=== PATIENT | male | born 1965 | race American Indian/Alaskan Native ===

== ENCOUNTER 2017-08-06 17:19 | Inpatient (IN) | payer MEDICARE ==
[2017-08-06] MEDS ORDERED: NACL 0.9% 500 ML 500 ML IV ONE (17:47)
[2017-08-06] MEDS ORDERED: NACL 0.9% 1000 ML 1,000 ML IV ONE ×2 (17:49→17:50)
[2017-08-06] MEDS ORDERED: KEPPRA 1,000 MG/NS 0.75% 100ML 1,000 MG/100 ML BAG IV ONE (17:55)
[2017-08-06 18:13] LABS: Basophils % (Auto) 0.4 % (0.0-1.8); Hematocrit 42.1 % (35.5-45.6); Hemoglobin 13.5 gm/dl (11.8-15.2); Mean Corpuscular HGB Conc 32 % (32-34); Mean Corpuscular Hemoglobin 30 pg (28-32); Mean Corpuscular Volume 93 fl (84-94); Platelet Count 248 K/mm3 (140-440); Red Blood Count 4.54 M/mm3 (3.65-5.03); Red Cell Distribution Width 15.2 % (13.2-15.2); White Blood Count 8.5 K/mm3 (4.5-11.0)
[2017-08-06] MEDS ORDERED: ATIVAN IV ONE ×2 (18:26→18:45)
[2017-08-06 18:30] LABS: INR 1.18 (0.87-1.13)
[2017-08-06] MEDS ORDERED: ATIVAN ONE (18:31)
[2017-08-06 18:33] LABS: Albumin/Globulin Ratio 1.3 %; Bilirubin,Total 0.4 mg/dL (0.1-1.2); Calcium 8.5 mg/dL (8.4-10.2); Chloride 100.5 mmol/L (98-107); Creatine Kinase MB 6.7 ng/mL (0.0-4.0); Potassium 3.8 mmol/L (3.6-5.0)
[2017-08-06 18:35] LABS: Creatine Kinase 663 units/L (55-170)
[2017-08-06] MEDS ORDERED: VITAMIN B-1 100 MG, FOLVITE 1 MG, INFUVITE 10 ML in NACL 0.9% 1000 ML 1,000 ML IV ONE (18:42)
--- NOTE | 2017-08-06 19:01 | XRay Report ---
FINAL REPORT PROCEDURE: Chest. TECHNIQUE: Portable AP supine view. HISTORY: Hypertension. COMPARISON: No prior studies are available for comparison. FINDINGS: The heart size is normal. There is mild tortuosity and elongation of the thoracic aorta. The lungs are clear and well expanded. The soft tissues are unremarkable. There is an old fracture of the left clavicle. Median sternotomy wires are present. IMPRESSION: No evidence of acute disease.
[2017-08-06] MEDS ORDERED: DULCOLAX PR PRN (19:10)
[2017-08-06] MEDS ORDERED: ZOFRAN IV PRN (19:10)
[2017-08-06] MEDS ORDERED: MILK OF MAGNESIA PO PRN (19:10)
[2017-08-06] MEDS ORDERED: TYLENOL PO PRN (19:10)
--- NOTE | 2017-08-06 19:10 | History and Physical Report ---
History of Present Illness Date of examination: 08/06/17 Date of admission: Chief complaint: Chief complaint: Multiple seizures today. [2] Altered SENSORIUM since morning. History of present illness: History of present illness: 52-year-old -Indian male comes in the ER for multiple seizures since morning. Tonic-clonic seizures as per the mother who is at bedside. Patient apparently not taking his medications because they're not sent in by [facility] where he follows as an outpatient. Patient says is on Keppra but does not know the dosage. Patient has not been taking his medications for the last 7-10 days. No fever no chills. No shortness of breath. No recent travel. No dysuria. Confused and altered sensorium as per mother which is clearing up in the ER. He was lucid to a large extent at the time of my examination. Moving all 4 extremities. Review of System: Constitutional: no fever, no chills, no weight loss Ears, eyes, nose, mouth and throat: no nasal congestion, no nasal discharge, no sinus pressure, no vision change, no red eye. Neck: No neck pain or rigidity. Cardiovascular: No chest pain, no orthopnea, no palpitations, no leg swelling Respiratory: No shortness of breath, no cough, no congestion, no wheezing Gastrointestinal: no abdominal pain, no nausea, no vomiting Genitourinary : no dysuria, no hematuria Musculoskeletal: no joint swelling or muscle ache Integumentary: no rash, no pruritis Neurological: See HPI Endocrine: no cold or heat intolerance , no polyuria or polydipsia Hematologic/Lymphatic: no easy bruising, no easy bleeding, no gland swelling Allergic/Immunologic: no urticaria, no angioedema. Past History Past Medical History: other (seizure disorder) Past Surgical History: No surgical history Social history: lives with family, smoking, alcohol abuse, full code Family history: hypertension Medications and Allergies Allergies Allergy/AdvReac Type Severity Reaction Status Date / Time No Known Allergies Allergy Unverified 08/06/17 17:59 Home Medications Medication Instructions Recorded Confirmed Last Taken Type No Known Home Medications [No 08/06/17 08/06/17 Unknown History Reported Home Medications] Active Meds: Active Medications Thiamine HCl 100 mg/ Folic Acid 1 mg/ Multivitamins/Minerals 10 ml/ Sodium Chloride 1,011.2 mls @ 250 mls/hr IV ONCE.ED ONE Stop: 08/06/17 22:44 Exam - Physical Exam Narrative exam: Lying comfortably in bed. Mother at bedside - Constitutional Vitals: Temp Pulse Resp BP Pulse Ox 97.7 F 86 31 H 130/88 96 08/06/17 17:59 08/06/17 19:00 08/06/17 19:00 08/06/17 19:00 08/06/17 18:51 General appearance: Present: no acute distress, well-nourished - EENT Eyes: Present: PERRL ENT: hearing intact, clear oral mucosa - Neck Neck: Present: supple, normal ROM - Respiratory Respiratory effort: normal Respiratory: bilateral: CTA - Cardiovascular Heart rate: 80 Rhythm: regular (80) Heart Sounds: Present: S1 & S2. Absent: rub, click - Extremities Extremities: no ischemia, pulses intact, pulses symmetrical, No edema Peripheral Pulses: within normal limits - Abdominal General gastrointestinal: Present: soft, non-tender, non-distended, normal bowel sounds Male genitourinary: Present: normal - Rectal Rectal Exam: deferred - Integumentary Integumentary: Present: clear, warm, dry - Musculoskeletal Musculoskeletal: gait normal, strength equal bilaterally - Psychiatric Psychiatric: appropriate mood/affect (was lethargic and decreased responsiveness while in the emergency room but improved to normal in the next 2 hours.), intact judgment & insight - Neurologic Neurologic: CNII-XII intact, moves all extremities, gait normal Results - Labs CBC & Chem 7: 08/06/17 17:58 08/06/17 17:58 Labs: Laboratory Last Values WBC 8.5 K/mm3 (4.5-11.0) 08/06/17 17:58 RBC 4.54 M/mm3 (3.65-5.03) 08/06/17 17:58 Hgb 13.5 gm/dl (11.8-15.2) 08/06/17 17:58 Hct 42.1 % (35.5-45.6) 08/06/17 17:58 MCV 93 fl (84-94) 08/06/17 17:58 MCH 30 pg (28-32) 08/06/17 17:58 MCHC 32 % (32-34) 08/06/17 17:58 RDW 15.2 % (13.2-15.2) 08/06/17 17:58 Plt Count 248 K/mm3 (140-440) 08/06/17 17:58 Lymph % (Auto) 26.5 % (13.4-35.0) 08/06/17 17:58 [place] % (Auto) 9.2 % (0.0-7.3) H 08/06/17 17:58 Eos % (Auto) 1.0 % (0.0-4.3) 08/06/17 17:58 Baso % (Auto) 0.4 % (0.0-1.8) 08/06/17 17:58 Lymph # 2.2 K/mm3 (1.2-5.4) 08/06/17 17:58 [place] # 0.8 K/mm3 (0.0-0.8) 08/06/17 17:58 Eos # 0.1 K/mm3 (0.0-0.4) 08/06/17 17:58 Baso # 0.0 K/mm3 (0.0-0.1) 08/06/17 17:58 Seg Neutrophils % 62.9 % (40.0-70.0) 08/06/17 17:58 Seg Neutrophils # 5.3 K/mm3 (1.8-7.7) 08/06/17 17:58 PT 15.6 Sec. (12.2-14.9) H 08/06/17 17:58 INR 1.18 (0.87-1.13) H 08/06/17 17:58 VBG pH 7.272 (7.320-7.420) L 08/06/17 17:58 Sodium 141 mmol/L (137-145) 08/06/17 17:58 Potassium 3.8 mmol/L (3.6-5.0) 08/06/17 17:58 Chloride 100.5 mmol/L (98-107) 08/06/17 17:58 Carbon Dioxide 15 mmol/L (22-30) L 08/06/17 17:58 Anion Gap 29 mmol/L 08/06/17 17:58 BUN 8 mg/dL (9-20) L 08/06/17 17:58 Creatinine 1.5 mg/dL (0.8-1.5) 08/06/17 17:58 Estimated GFR 49 ml/min 08/06/17 17:58 BUN/Creatinine Ratio 5 % 08/06/17 17:58 Glucose 168 mg/dL (75-100) H 08/06/17 17:58 POC Glucose 142 (70-105) H 08/06/17 17:46 Calcium 8.5 mg/dL (8.4-10.2) 08/06/17 17:58 Magnesium 2.40 mg/dL (1.7-2.3) H 08/06/17 17:58 Total Bilirubin 0.40 mg/dL (0.1-1.2) 08/06/17 17:58 AST 29 units/L (5-40) 08/06/17 17:58 ALT 26 units/L (7-56) 08/06/17 17:58 Alkaline Phosphatase 76 units/L (35-129) 08/06/17 17:58 Ammonia 93.0 umol/L (25-60) H 08/06/17 18:25 Total Creatine Kinase 663 units/L (55-170) H 08/06/17 17:58 CK-MB (CK-2) 6.7 ng/mL (0.0-4.0) H 08/06/17 17:58 CK-MB (CK-2) Rel Index 1.0 (0-4) 08/06/17 17:58 Troponin T < 0.010 ng/mL (0.00-0.029) 08/06/17 17:58 NT-Pro-B Natriuret Pep 274.5 pg/mL (0-900) 08/06/17 17:58 Total Protein 7.0 g/dL (6.3-8.2) 08/06/17 17:58 Albumin 4.0 g/dL (3.9-5) 08/06/17 17:58 Albumin/Globulin Ratio 1.3 % 08/06/17 17:58 Short CBC 08/06/17 Range/Units 17:58 WBC 8.5 (4.5-11.0) K/mm3 Hgb 13.5 (11.8-15.2) gm/dl Hct 42.1 (35.5-45.6) % Plt Count 248 (140-440) K/mm3 BMP 08/06/17 17:58 Sodium 141 Potassium 3.8 Chloride 100.5 Carbon Dioxide 15 L BUN 8 L Creatinine 1.5 Glucose 168 H Calcium 8.5 Cardiac Enzymes 08/06/17 Range/Units 17:58 Total Creatine Kinase 663 H (55-170) units/L CK-MB (CK-2) 6.7 H (0.0-4.0) ng/mL Troponin T < 0.010 (0.00-0.029) ng/mL Liver Function 08/06/17 Range/Units 17:58 Total Bilirubin 0.40 (0.1-1.2) mg/dL AST 29 (5-40) units/L ALT 26 (7-56) units/L Alkaline Phosphatase 76 (35-129) units/L Albumin 4.0 (3.9-5) g/dL - Imaging and Cardiology EKG: report reviewed (Normal sinus rhythm 80 per minute) Chest x-ray: report reviewed (no acute findings) CT Scan - head: report reviewed (not done) Assessment and Plan Advance Directives: Yes (full code) VTE prophylaxis?: Chemical Plan of care discussed with patient/family: Yes - Patient Problems (1) Acute encephalopathy Current Visit: Yes Status: Acute Plan to address problem: Secondary to seizures. Patient noncompliant. Patient counseled about compliance. Patient started on IV Keppra for 3 doses and transitioned to by mouth Keppra thousand milligrams every 12 from tomorrow evening. Orders written appropriately. IV fluids for now. Sepsis unlikely even though lacticacid is high. High lactic acid may be secondary to seizures and causing anaerobic metabolism.. Lactic acid can be very high after severe muscular activity like 100 m race. (2) Sepsis Current Visit: Yes Status: Acute Qualifiers: Sepsis type: sepsis due to unspecified organism Qualified Code(s): A41.9 - Sepsis, unspecified organism Plan to address problem: unlikely. No focus of infection found. High lactic acid secondary to seizure activity. We will start empiric IV Zosyn couple of doses. Team 3 can stop it tomorrow if no signs of infection present Blood cultures and urine cultures ordered. (3) Seizure disorder, generalized convulsive, intractable Current Visit: Yes Status: Acute Plan to address problem: Patient started on IV Keppra to be transitioned to by mouth Keppra tomorrow evening (4) Non-compliance Current Visit: Yes Status: Chronic Plan to address problem: Patient counseled about the dangers of noncompliance. (5) DVT prophylaxis Current Visit: Yes Status: Acute Plan to address problem: patient started on Lovenox 40 milligrams subcutaneous daily
[2017-08-06] MEDS ORDERED: ATIVAN IV PRN ×3 (19:17)
--- NOTE | 2017-08-06 19:18 | Ultrasound Report ---
FINAL REPORT PROCEDURE: Limited abdominal ultrasound. TECHNIQUE: Real-time sonography was performed of the abdominal aorta with image documentation. HISTORY: Low blood pressure, rule out abdominal aortic aneurysm. COMPARISON: No prior studies are available for comparison. FINDINGS: The abdominal aorta has a normal caliber. The diameter measures 2.5 centimeters proximally, 2.2 centimeters in the midportion and 1.9 centimeters distally. The iliac arteries were not seen due to bowel gas. There is no free fluid seen in the abdomen or pelvis. IMPRESSION: Normal sized abdominal aorta.
--- NOTE | 2017-08-06 19:23 | Emergency Department Report ---
ED General Adult HPI - General Chief complaint: Arrhythmia/Palpitations Stated complaint: RAPID HEART RATE Time Seen by Provider: 08/06/17 17:47 Source: EMS Mode of arrival: Stretcher Limitations: No Limitations - History of Present Illness Initial comments: Patient is transported to this facility by EMS with a somewhat disparate history the family. The family states clearly that the patient's brother witnessed him have a a seizure. The patient's or girlfriend states that he has "seizures frequently and usually goes to [place]." He "drinks like a fish ". He also has a history of cocaine abuse. Commercial Sales Specialist report that the patient had a heart rate of 180 when they encountered him for the second time. The first call was associated with refusal of transport. They were called back to the facility I'm not sure if this was a second seizure with the rationale for calling them back was. Her medics believe that the patient was in SVT and show prehospital EKGs with a heart rate of nearly 180 and a largely regular rhythm. It looks like this may actually have been sinus tach. In any case they gave adenosine 6 mg and then 12 mg without effect. They then reported to me that the patient had periods of V. tach. They were unable to demonstrate any V. tach on the code summary. Strips that I see do not show any wide complex tachycardia. The patient presents to the emergency department now with heart rate in the 60s. He denies chest pain. He states he has some lower back pain but I cannot ascertain whether this is acute at all. He is somewhat confused on arrival. His significant other states that he has not been to this hospital before. He is status post a CABG which he states was after the year 1999. He is noncompliant with his seizure medicine. He has a history of alcohol withdrawal. -: unknown Quality: other (lower back pain did not describe further) Associated Symptoms: denies other symptoms - Related Data Home Medications Medication Instructions Recorded Confirmed Last Taken No Known Home Medications [No 08/06/17 08/06/17 Unknown Reported Home Medications] Allergies Allergy/AdvReac Type Severity Reaction Status Date / Time No Known Allergies Allergy Unverified 08/06/17 17:59 ED Review of Systems ROS: Stated complaint: RAPID HEART RATE Other details as noted in HPI Comment: Unobtainable due to pts medical conditions (I believe the patient is postictal) ED Past Medical Hx - Past Medical History Previous Medical History?: Yes Hx Hypertension: Yes Additional medical history: uknown heart condition - Surgical History Past Surgical History?: Yes Additional Surgical History: unknown cardiac - Social History Smoking Status: Former Smoker Substance Use Type: Alcohol, Cocaine - Medications Home Medications: Home Medications Medication Instructions Recorded Confirmed Last Taken Type No Known Home Medications [No 08/06/17 08/06/17 Unknown History Reported Home Medications] ED Physical Exam - General Limitations: Altered Mental Status General appearance: in no apparent distress, lethargic, other (right sweaty on arrival) - Head Head exam: Present: atraumatic, normocephalic - Eye Eye exam: Present: normal appearance, PERRL, EOMI. Absent: scleral icterus - ENT ENT exam: Present: mucous membranes moist - Neck Neck exam: Present: normal inspection. Absent: tenderness, meningismus - Respiratory Respiratory exam: Present: normal lung sounds bilaterally. Absent: respiratory distress - Cardiovascular Cardiovascular Exam: Present: regular rate, normal rhythm. Absent: systolic murmur, diastolic murmur, rubs, gallop - GI/Abdominal GI/Abdominal exam: Present: soft, normal bowel sounds. Absent: distended, tenderness, guarding, rebound, rigid - Rectal Rectal exam: Present: deferred - Extremities Exam Extremities exam: Present: normal inspection - Back Exam Back exam: Present: normal inspection - Neurological Exam Neurological exam: Present: alert, oriented X3, CN II-XII intact. Absent: motor sensory deficit - Psychiatric Psychiatric exam: Present: anxious, flat affect - Skin Skin exam: Present: warm, intact, normal color, diaphoretic. Absent: rash ED Course Vital Signs 08/06/17 08/06/17 08/06/17 17:44 17:45 17:47 Temperature 97.7 F Pulse Rate 78 Respiratory 16 Rate Blood Pressure 71/45 79/49 79/49 Blood Pressure [Left] O2 Sat by Pulse 96 Oximetry 08/06/17 08/06/17 08/06/17 17:59 18:00 18:15 Temperature 97.7 F Pulse Rate 90 Respiratory Rate Blood Pressure 104/74 115/84 Blood Pressure 136/84 [Left] O2 Sat by Pulse 98 94 95 Oximetry 08/06/17 08/06/17 08/06/17 18:30 18:51 18:59 Temperature Pulse Rate 86 Respiratory Rate Blood Pressure 115/84 79/49 Blood Pressure [Left] O2 Sat by Pulse 94 96 Oximetry 08/06/17 19:00 Temperature Pulse Rate 86 Respiratory 31 H Rate Blood Pressure 130/88 Blood Pressure [Left] O2 Sat by Pulse Oximetry - Reevaluation(s) Reevaluation #1: Patient responded to a fluid bolus. He was given a small amount of Ativan. A banana bag was ordered. His EKG was noted to be significantly abnormal with no prior to compare. He did not complain of chest pain. His lower back pain resolved. He is noted to have a lactic acid level of 11. A bedside ultrasound was performed which showed no apparent abnormality per the tech. Dr. Ornelas was informed of the patient's elevated lactic acid level. He stated that he wanted to admit the patient to the [facility] floor. I do believe the patient will need to see what protocol. It is likely that he had recurrent seizures. I don't see any evidence of a focus of infection as blood pressure has improved. His code sepsis will be discontinued. Dr. Ornelas has assumed care of the patient. Further evaluation and management will be per Dr. Ornelas. 08/06/17 19:27 Reevaluation #2: Patient is clinically improved and speaking coherently now. He will be admitted by . 08/06/17 19:32 ED Medical Decision Making - Lab Data Result diagrams: 08/06/17 17:58 08/06/17 17:58 Laboratory Results - last 24 hr 08/06/17 08/06/17 08/06/17 17:46 17:58 17:58 WBC 8.5 RBC 4.54 Hgb 13.5 Hct 42.1 MCV 93 MCH 30 MCHC 32 RDW 15.2 Plt Count 248 Lymph % (Auto) 26.5 [place] % (Auto) 9.2 H Eos % (Auto) 1.0 Baso % (Auto) 0.4 Lymph # 2.2 [place] # 0.8 Eos # 0.1 Baso # 0.0 Seg Neutrophils % 62.9 Seg Neutrophils # 5.3 PT 15.6 H INR 1.18 H VBG pH Sodium Potassium Chloride Carbon Dioxide Anion Gap BUN Creatinine Estimated GFR BUN/Creatinine Ratio Glucose POC Glucose 142 H Lactic Acid Calcium Magnesium Total Bilirubin AST ALT Alkaline Phosphatase Ammonia Total Creatine Kinase CK-MB (CK-2) CK-MB (CK-2) Rel Index Troponin T NT-Pro-B Natriuret Pep Total Protein Albumin Albumin/Globulin Ratio 08/06/17 08/06/17 08/06/17 17:58 17:58 17:58 WBC RBC Hgb Hct MCV MCH MCHC RDW Plt Count Lymph % (Auto) [place] % (Auto) Eos % (Auto) Baso % (Auto) Lymph # [place] # Eos # Baso # Seg Neutrophils % Seg Neutrophils # PT INR VBG pH 7.272 L Sodium 141 Potassium 3.8 Chloride 100.5 Carbon Dioxide 15 L Anion Gap 29 BUN 8 L Creatinine 1.5 Estimated GFR 49 BUN/Creatinine Ratio 5 Glucose 168 H POC Glucose Lactic Acid 11.20 H* Calcium 8.5 Magnesium Total Bilirubin 0.40 AST 29 ALT 26 Alkaline Phosphatase 76 Ammonia Total Creatine Kinase CK-MB (CK-2) CK-MB (CK-2) Rel Index Troponin T NT-Pro-B Natriuret Pep Total Protein 7.0 Albumin 4.0 Albumin/Globulin Ratio 1.3 08/06/17 08/06/17 08/06/17 17:58 17:58 18:25 WBC RBC Hgb Hct MCV MCH MCHC RDW Plt Count Lymph % (Auto) [place] % (Auto) Eos % (Auto) Baso % (Auto) Lymph # [place] # Eos # Baso # Seg Neutrophils % Seg Neutrophils # PT INR VBG pH Sodium Potassium Chloride Carbon Dioxide Anion Gap BUN Creatinine Estimated GFR BUN/Creatinine Ratio Glucose POC Glucose Lactic Acid Calcium Magnesium 2.40 H Total Bilirubin AST ALT Alkaline Phosphatase Ammonia 93.0 H Total Creatine Kinase 663 H CK-MB (CK-2) 6.7 H CK-MB (CK-2) Rel Index 1.0 Troponin T < 0.010 NT-Pro-B Natriuret Pep 274.5 Total Protein Albumin Albumin/Globulin Ratio - EKG Data -: EKG Interpreted by Me EKG shows normal: sinus rhythm Rate: normal - EKG Data Interpretation: LVH, other (there is no deep to and through V4. There is slight J-point elevation versus motion artifact in the inferior leads. There is no STEMI.) - Radiology Data interpreted by me: Chest x-ray showed no acute process Critical Care Time: Yes Critical care time in (mins) excluding proc time.: 60 Critical care attestation.: If time is entered above; I have spent that time in minutes in the direct care of this critically ill patient, excluding procedure time. ED Disposition Clinical Impression: Recurrent seizures, Lactic acidosis, Seizure disorder, Supraventricular tachycardia, Abnormal EKG, History of coronary artery bypass graft Hypotension Qualifiers: Hypotension type: unspecified hypotension type Qualified Code(s): I95.9 - Hypotension, unspecified Alcohol withdrawal Qualifiers: Complication of substance-induced condition: with unspecified complication Qualified Code(s): F10.239 - Alcohol dependence with withdrawal, unspecified Disposition: DC-09 OP ADMIT IP TO THIS HOSP Is pt being admited?: Yes Does the pt Need Aspirin: Yes Condition: Stable Referrals: PRIMARY CARE, [Primary Care Provider] - 3-5 Days Time of Disposition: 19:34
[2017-08-06] MEDS ORDERED: BABY ASPIRIN PO ONE (19:34)
[2017-08-06] MEDS ORDERED: D5/0.45NS 1,000 ML IV SCH (20:00)
[2017-08-06] MEDS: ZOSYN/NS 4.5GM/100ML 4.5 GM/100 ML VIAL IV SCH (20:40)
[2017-08-06] MEDS ORDERED: LOVENOX SUB-Q SCH (22:00)
[2017-08-07] MEDS: LOVENOX SUB-Q SCH ×2 (02:02→22:35)
[2017-08-07] MEDS: ZOSYN/NS 4.5GM/100ML 4.5 GM/100 ML VIAL IV SCH ×3 (05:13→20:00)
[2017-08-07] MEDS ORDERED: KEPPRA 1,000 MG/NS 0.75% 100ML 1,000 MG/100 ML BAG IV SCH (06:00)
--- NOTE | 2017-08-07 15:09 | Progress Note ---
Assessment and Plan - Patient Problems (1) Acute encephalopathy Current Visit: Yes Status: Acute Plan to address problem: Secondary to seizures. Patient noncompliant. Patient counseled about compliance. Patient started on IV Keppra for 3 doses and transitioned to by mouth Keppra thousand milligrams every 12 from tomorrow evening. Orders written appropriately. IV fluids for now. Sepsis unlikely even though lacticacid is high. High lactic acid may be secondary to seizures and causing anaerobic metabolism.. Lactic acid can be very high after severe muscular activity like 100 m race. (2) Sepsis Current Visit: Yes Status: Acute Qualifiers: Sepsis type: sepsis due to unspecified organism Qualified Code(s): A41.9 - Sepsis, unspecified organism Plan to address problem: unlikely. No focus of infection found. High lactic acid secondary to seizure activity. We will start empiric IV Zosyn couple of doses. Team 3 can stop it tomorrow if no signs of infection present Blood cultures and urine cultures ordered. (3) Seizure disorder, generalized convulsive, intractable Current Visit: Yes Status: Acute Plan to address problem: Patient started on IV Keppra to be transitioned to by mouth Keppra tomorrow evening (4) Non-compliance Current Visit: Yes Status: Chronic Plan to address problem: Patient counseled about the dangers of noncompliance. (5) Hyperammonemia Current Visit: Yes Status: Chronic Plan to address problem: No elevated transaminases patient alert and oriented Will repeat ammonia level Hepatic encephalopathy unlikely (6) Elevated d-dimer Current Visit: Yes Status: Chronic Plan to address problem: Non specific (7) DVT prophylaxis Current Visit: Yes Status: Acute Plan to address problem: patient started on Lovenox 40 milligrams subcutaneous daily (8) Discharge planning issues Current Visit: Yes Status: Acute Plan to address problem: Patient Lactic acid levelis normal.No signs and symptoms of ETOH withdrawal.IfSepsis unlikely.If Ammonia level normal patient maybe discharged tomorrow.Check labs History Interval history: More alert and oriented Hospitalist Physical - Physical exam Narrative exam: Lying comfortably in bed. Mother at bedside - Constitutional Vitals: Temp Pulse Resp BP Pulse Ox 98.0 F 82 19 140/105 97 08/07/17 09:10 08/07/17 09:10 08/07/17 09:10 08/07/17 09:10 08/07/17 09:10 General appearance: Present: no acute distress, well-nourished - EENT Eyes: Present: PERRL, EOM intact ENT: hearing intact, clear oral mucosa - Respiratory Respiratory effort: normal Respiratory: bilateral: CTA - Cardiovascular Heart rate: 76 Rhythm: regular - Extremities Extremities: no ischemia, pulses intact, pulses symmetrical Peripheral Pulses: within normal limits - Abdominal General gastrointestinal: soft, non-tender, non-distended, normal bowel sounds - Integumentary Integumentary: Present: clear, warm, dry - Psychiatric Psychiatric: appropriate mood/affect, intact judgment & insight, memory intact, cooperative - Neurologic Neurologic: CNII-XII intact, moves all extremities, gait normal - Allied Health Allied health notes reviewed: nursing, case management Results - Labs CBC & Chem 7: 08/07/17 15:32 08/07/17 15:32 Labs: Laboratory Last Values WBC 8.5 K/mm3 (4.5-11.0) 08/06/17 17:58 RBC 4.54 M/mm3 (3.65-5.03) 08/06/17 17:58 Hgb 13.5 gm/dl (11.8-15.2) 08/06/17 17:58 Hct 42.1 % (35.5-45.6) 08/06/17 17:58 MCV 93 fl (84-94) 08/06/17 17:58 MCH 30 pg (28-32) 08/06/17 17:58 MCHC 32 % (32-34) 08/06/17 17:58 RDW 15.2 % (13.2-15.2) 08/06/17 17:58 Plt Count 248 K/mm3 (140-440) 08/06/17 17:58 Lymph % (Auto) 26.5 % (13.4-35.0) 08/06/17 17:58 [place] % (Auto) 9.2 % (0.0-7.3) H 08/06/17 17:58 Eos % (Auto) 1.0 % (0.0-4.3) 08/06/17 17:58 Baso % (Auto) 0.4 % (0.0-1.8) 08/06/17 17:58 Lymph # 2.2 K/mm3 (1.2-5.4) 08/06/17 17:58 [place] # 0.8 K/mm3 (0.0-0.8) 08/06/17 17:58 Eos # 0.1 K/mm3 (0.0-0.4) 08/06/17 17:58 Baso # 0.0 K/mm3 (0.0-0.1) 08/06/17 17:58 Seg Neutrophils % 62.9 % (40.0-70.0) 08/06/17 17:58 Seg Neutrophils # 5.3 K/mm3 (1.8-7.7) 08/06/17 17:58 PT 15.6 Sec. (12.2-14.9) H 08/06/17 17:58 INR 1.18 (0.87-1.13) H 08/06/17 17:58 D-Dimer 2139 ng/mlDDU (0-234) H 08/06/17 17:58 VBG pH 7.272 (7.320-7.420) L 08/06/17 17:58 Sodium 141 mmol/L (137-145) 08/06/17 17:58 Potassium 3.8 mmol/L (3.6-5.0) 08/06/17 17:58 Chloride 100.5 mmol/L (98-107) 08/06/17 17:58 Carbon Dioxide 15 mmol/L (22-30) L 08/06/17 17:58 Anion Gap 29 mmol/L 08/06/17 17:58 BUN 8 mg/dL (9-20) L 08/06/17 17:58 Creatinine 1.5 mg/dL (0.8-1.5) 08/06/17 17:58 Estimated GFR 49 ml/min 08/06/17 17:58 BUN/Creatinine Ratio 5 % 08/06/17 17:58 Glucose 168 mg/dL (75-100) H 08/06/17 17:58 POC Glucose 142 (70-105) H 08/06/17 17:46 Lactic Acid 5.00 mmol/L (0.7-2.0) H* 08/06/17 20:21 Calcium 8.5 mg/dL (8.4-10.2) 08/06/17 17:58 Magnesium 2.40 mg/dL (1.7-2.3) H 08/06/17 17:58 Total Bilirubin 0.40 mg/dL (0.1-1.2) 08/06/17 17:58 AST 29 units/L (5-40) 08/06/17 17:58 ALT 26 units/L (7-56) 08/06/17 17:58 Alkaline Phosphatase 76 units/L (35-129) 08/06/17 17:58 Ammonia 93.0 umol/L (25-60) H 08/06/17 18:25 Total Creatine Kinase 663 units/L (55-170) H 08/06/17 17:58 CK-MB (CK-2) 6.7 ng/mL (0.0-4.0) H 08/06/17 17:58 CK-MB (CK-2) Rel Index 1.0 (0-4) 08/06/17 17:58 Troponin T < 0.010 ng/mL (0.00-0.029) 08/06/17 17:58 NT-Pro-B Natriuret Pep 274.5 pg/mL (0-900) 08/06/17 17:58 Total Protein 7.0 g/dL (6.3-8.2) 08/06/17 17:58 Albumin 4.0 g/dL (3.9-5) 08/06/17 17:58 Albumin/Globulin Ratio 1.3 % 08/06/17 17:58 Blood Type A POSITIVE 08/06/17 18:25 Antibody Screen TNR 08/06/17 18:25 PAYAL Antibody Screen Negative 08/06/17 18:25
[2017-08-07 16:06] LABS: Basophils % (Auto) 0.9 % (0.0-1.8); Eosinophils % (Auto) 2.3 % (0.0-4.3); Hematocrit 40.1 % (35.5-45.6); Hemoglobin 13.5 gm/dl (11.8-15.2); Mean Corpuscular HGB Conc 34 % (32-34); Mean Corpuscular Hemoglobin 30 pg (28-32); Mean Corpuscular Volume 90 fl (84-94); Platelet Count 214 K/mm3 (140-440); Red Blood Count 4.45 M/mm3 (3.65-5.03); Red Cell Distribution Width 14.6 % (13.2-15.2); White Blood Count 6.2 K/mm3 (4.5-11.0)
[2017-08-07 16:13] LABS: Alanine Aminotransferase 24 units/L (7-56); Albumin 3.8 g/dL (3.9-5); Alkaline Phosphatase 70 units/L (35-129); Anion Gap 18 mmol/L; BUN/Creatinine Ratio 5; Blood Urea Nitrogen 5 mg/dL (9-20); Calcium 8.5 mg/dL (8.4-10.2); Carbon Dioxide 21 mmol/L (22-30); Glucose 122 mg/dL (75-100); Potassium 3.3 mmol/L (3.6-5.0); Sodium 135 mmol/L (137-145); Total Protein 7.5 g/dL (6.3-8.2)
[2017-08-07] MEDS ORDERED: KEPPRA PO SCH (18:00)
[2017-08-08 04:41] LABS: Basophils % (Auto) 0.8 % (0.0-1.8); Eosinophils % (Auto) 3.3 % (0.0-4.3); Hemoglobin 14.2 gm/dl (11.8-15.2); Mean Corpuscular HGB Conc 34 % (32-34); Mean Corpuscular Hemoglobin 30 pg (28-32); Mean Corpuscular Volume 90 fl (84-94); Platelet Count 210 K/mm3 (140-440); Red Blood Count 4.68 M/mm3 (3.65-5.03); Red Cell Distribution Width 14.4 % (13.2-15.2); White Blood Count 4.8 K/mm3 (4.5-11.0)
[2017-08-08 05:00] LABS: Alanine Aminotransferase 22 units/L (7-56); Albumin 3.8 g/dL (3.9-5); Albumin/Globulin Ratio 1.1 %; Alkaline Phosphatase 65 units/L (35-129); Anion Gap 19 mmol/L; BUN/Creatinine Ratio 6; Blood Urea Nitrogen 6 mg/dL (9-20); Calcium 8.6 mg/dL (8.4-10.2); Carbon Dioxide 22 mmol/L (22-30); Chloride 100.9 mmol/L (98-107); Glucose 93 mg/dL (75-100); Potassium 3.4 mmol/L (3.6-5.0); Sodium 138 mmol/L (137-145); Total Protein 7.4 g/dL (6.3-8.2)
[2017-08-08] MEDS: ZOSYN/NS 4.5GM/100ML 4.5 GM/100 ML VIAL IV SCH (05:51)
[2017-08-08 07:36] VITALS: BP 135/93
[2017-08-08] MEDS ORDERED: K-DUR PO ONE (08:11)
--- NOTE | 2017-08-08 12:55 | Discharge Summary ---
Providers - Providers Date of Admission: 08/06/17 19:10 Attending physician: JUDI REYEZ Primary care physician: [employer] Hospitalization Condition: Stable Hospital course: Patient was seen and examined, he was adamant on leaving AMA. He refused to wait on prescriptions, he refuses weight on potassium supplements. She states he has prescription from [facility] on [facility] and is going to get them now. He also says he was given potassium [id number] Disposition: DC-07 LEFT AGAINST MED ADVICE Time spent for discharge: 34 min Core Measure Documentation - Palliative Care Palliative Care/ Comfort Measures: Not Applicable - Core Measures Any of the following diagnoses?: none - VTE Discharge Requirements Deep Vein Thrombosis/Pulmonary Embolism Present on Admission: No Has pt received <5 days of overlap therapy or INR<2.0: No Anticoagulant overlap therapy prescribed at discharge: No Contraindication No Overlap Therapy order at DC: Not Indicated Exam - Physical Exam Narrative exam: GEN: WDWN, NAD, AWAKE, ALERT, ORIENTATED 3 HEENT: NCAT, EOMI, PERRL, OP Clear NECK: supple, no adenopathy, no thyromegaly, no JVD CVS/HEART: RRR, NORMAL S1S2, NO JVD, pulses present bilaterally CHEST/LUNGS: CTA B, Symmetrical chest expansion, good air entry bilaterally GI/Abdomen: soft, NTND, good bowel sounds, no guarding or rebound /Bladder: no suprapubic tenderness, no CVA or paraspinal tenderness EXT/Skin: no c/c/e, no significant edema or obvious rash MSK: FROM x 4 Neuro: CN 2-12 grossly intact, no new focal deficits Psych: calm - Constitutional Vitals: Temp Pulse Resp BP Pulse Ox 98.6 F 73 18 135/93 96 08/08/17 07:22 08/08/17 07:22 08/08/17 07:22 08/08/17 07:22 08/08/17 07:22 Plan Activity: no driving until cleared by PCP, other (no strenous activity until cleared by pcp) Diet: low salt Follow up with: PRIMARY CARE, [Primary Care Provider] - 3-5 Days
== END 2017-08-08 09:45 | disposition left against medical advice (07) | DRG 872 ==
LOC: EDBD 17:19 → ED 17:19 → 3A 19:10
PROVIDERS: ADMIT Internal Medicine; ATTEND Internal Medicine
DX: A41.9 Sepsis, unspecified organism (principal); G40.419 Other generalized epilepsy and epileptic syndromes, intractable, without status epilepticus; E72.20 Disorder of urea cycle metabolism, unspecified; I47.1 Supraventricular tachycardia; M62.82 Rhabdomyolysis; Z53.21 Procedure and treatment not carried out due to patient leaving prior to being seen by health care provider; M54.5 Low back pain; F14.90 Cocaine use, unspecified, uncomplicated; I10 Essential (primary) hypertension; Z91.19 Patient's noncompliance with other medical treatment and regimen; Z87.891 Personal history of nicotine dependence; Z95.1 Presence of aortocoronary bypass graft; I95.9 Hypotension, unspecified
CPT/HCPCS: 36415; 71010; 76705; 80053; 82140; 82550; 82553; 82805; 82962; 83735; 83880; 84484; 85025; 85379; 85610; 86850; 86900; 86901; 87040; 93005; 93010; J1650; J1953; J2060; J2543; J3411; J7030; J7040

== ENCOUNTER 2018-11-19 08:22 | Emergency (ER) | payer MEDICARE ==
[2018-11-19] MEDS ORDERED: KEPPRA 1,000 MG/NS 0.75% 100ML 1,000 MG/100 ML BAG IV ONE (09:33)
[2018-11-19 09:45] LABS: Basophils % (Auto) 0.6 % (0.0-1.8); Eosinophils % (Auto) 0.3 % (0.0-4.3); Hematocrit 42.2 % (35.5-45.6); Hemoglobin 13.9 gm/dl (11.8-15.2); Lymphocytes # (Auto) 0.7 K/mm3 (1.2-5.4); Lymphocytes % (Auto) 15.7 % (13.4-35.0); Mean Corpuscular HGB Conc 33 % (32-34); Mean Corpuscular Volume 93 fl (84-94); Monocytes # (Auto) 0.6 K/mm3 (0.0-0.8); Monocytes % (Auto) 13.5 % (0.0-7.3); Platelet Count 230 K/mm3 (140-440); Red Blood Count 4.56 M/mm3 (3.65-5.03); Red Cell Distribution Width 14.5 % (13.2-15.2)
[2018-11-19 10:01] LABS: BUN/Creatinine Ratio 8; Blood Urea Nitrogen 10 mg/dL (9-20); Calcium 9.1 mg/dL (8.4-10.2); Hemolysis Index 9
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
[2018-11-19 14:28] LABS: Amorphous Crystals,Urine Few; Bacteria,Urine 1+ /HPF (Negative); Bilirubin,Urine NEG (Negative); Blood,Urine SM (Negative); Color,Urine Yellow (Yellow); Mucus,Urine 3+ /HPF; Urobilinogen,Urine < 2.0 mg/dL (<2.0)
[2018-11-19 14:31] VITALS: BP 120/86
[2018-11-19 14:37] LABS: Amphetamine Screen,Urine PRESUMPTIVE NEGATIVE; Benzodiazepines Screen,Urine PRESUMPTIVE NEGATIVE; Methadone Screen,Urine PRESUMPTIVE NEGATIVE; Opiate Screen,Urine PRESUMPTIVE NEGATIVE
[2018-11-19 15:00] LABS: Cannabinoid Screen,Urine PRESUMPTIVE POSITIVE; Cocaine Screen,Urine PRESUMPTIVE POSITIVE
== END 2018-11-19 14:31 | disposition home or self-care (01) ==
LOC: ED 08:22
DX: G40.409 Other generalized epilepsy and epileptic syndromes, not intractable, without status epilepticus (principal); I10 Essential (primary) hypertension
CPT/HCPCS: 36415; 80048; 80307; 81001; 85025; 96374; 99284; J1953

== ENCOUNTER 2020-02-02 16:14 | Emergency (ER) | payer MEDICARE ==
[2020-02-02] MEDS ORDERED: THIAMINE 100 MG, FOLIC ACID 1 MG, MULTIPLE VITAMIN INJ, ADULT 10 ML in SODIUM CHLORIDE ... IV ONE (16:21)
[2020-02-02] MEDS ORDERED: diphenhydrAMINE 50 MG/ML VIAL ONE (16:22)
[2020-02-02] MEDS ORDERED: LORazepam 2 MG/ML VIAL ONE (16:22)
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
[2020-02-02] MEDS ORDERED: LORazepam 2 MG/ML VIAL IV ONE (16:31)
[2020-02-02] MEDS ORDERED: diphenhydrAMINE 50 MG/ML VIAL IV ONE (16:31)
--- NOTE | 2020-02-02 17:22 | Cat Scan Report ---
CT HEAD WITHOUT CONTRAST INDICATION / CLINICAL INFORMATION: Altered mental status. Unresponsive patient. Patient fell sustaining head and neck injuries. TECHNIQUE: All CT scans at this location are performed using CT dose reduction for ALARA by means of automated e xposure control. COMPARISON: None available. FINDINGS: HEMORRHAGE: There is a small amount of subarachnoid blood within a sulcus along the lateral convexity of the left parietal operculum (CT series [address] series 602 image 49). The distribution o f this small amount of subarachnoid hemorrhage is consistent with a traumatic etiology. No extra-axia l hemorrhage is noted. There is no indication of parenchymal hemorrhage. POSTOPERATIVE CHANGES: Patient is status post left craniotomy involving the temporal squamosa and par ietal bone. Correlation with surgical history is suggested. EXTRA-AXIAL SPACES: Cortical sulci, sylvian fissures and basilar cisterns have an unremarkable appear ance. VENTRICULAR SYSTEM: The ventricular system is of normal size and configuration. CEREBRAL PARENCHYMA: An area of encephalomalacia is seen in the left temporal lobe adjacent to the cr aniotomy defect. No additional areas of abnormal brain parenchymal attenuation are identified. MIDLINE SHIFT OR HERNIATION: There is no mass effect. CEREBELLUM / BRAINSTEM: Brainstem and cerebellum have an unremarkable appearance. INTRACRANIAL VESSELS:No abnormalities are identified on this noncontrast head CT. ORBITS: visualized portions of the orbits have an unremarkable appearance. SOFT TISSUES of HEAD: No significant abnormality. CALVARIUM: Evaluation of bone windows reveals no abnormalities. PARANASAL SINUSES / MASTOID AIR CELLS: Paranasal sinuses are free from inflammatory mucosal disease. Mastoid air cells are normally pneumatized. IMPRESSION: 1. There is a small amount of subarachnoid blood in a single cortical sulcus along the lateral convex ity of the left parietal operculum as noted above. The location of subarachnoid hemorrhage is consist ent with a traumatic etiology. 2. Postoperative changes status post left temporoparietal craniotomy. There is an area of encephaloma lacia adjacent to the craniotomy site. Signer Name: Blayne Bell MD Signed: 02/02/2020 5:18 PM Workstation Name: [id number]
[2020-02-02 17:31] LABS: Basophils % (Auto) 1.1 % (0.0-1.8); Eosinophils # (Auto) 0.1 K/mm3 (0.0-0.4); Eosinophils % (Auto) 2.6 % (0.0-4.3); Hematocrit 35.6 % (35.5-45.6); Hemoglobin 11.7 gm/dl (11.8-15.2); Lymphocytes # (Auto) 1.8 K/mm3 (1.2-5.4); Mean Corpuscular HGB Conc 33 % (32-34); Mean Corpuscular Volume 93 fl (84-94); Monocytes # (Auto) 0.3 K/mm3 (0.0-0.8); Monocytes % (Auto) 6.8 % (0.0-7.3); Platelet Count 245 K/mm3 (140-440); Red Blood Count 3.85 M/mm3 (3.65-5.03); Red Cell Distribution Width 15.1 % (13.2-15.2)
--- NOTE | 2020-02-02 17:34 | Cat Scan Report ---
CT CERVICAL SPINE WITHOUT CONTRAST INDICATION / CLINICAL INFORMATION: Trauma. Patient fell sustaining head and neck injuries. Patient is currently unresponsive. TECHNIQUE: Axial CT images were obtained through the cervical spine. Sagittal and coronal reformatted images wer e produced. All CT scans at this location are performed using CT dose reduction for ALARA by means of automated exposure control. COMPARISON: None available. FINDINGS: ALIGNMENT: Patient's head is tilted towards the right at the time of this study. No additional abnorm alities of alignment are identified. There is no indication of traumatic subluxation. VERTEBRAE: There is no indication of fracture. DISC SPACES: Disc height is decreased slightly at the C6-7 level. INDIVIDUAL LEVEL ANALYSIS: C2-3: Mild anterior osteophyte formation is noted. Central spinal canal and neuroforamina are adequat cherry maintained. C3-4: Anterior osteophyte formation is noted. Central spinal canal and neuroforamina are adequately m aintained. C4-5: Right worse than left uncovertebral arthropathy contributes to moderate right-sided and mild le ft-sided neuroforaminal stenosis at the C5 nerve root level. Central spinal canal is adequate in size . C5-6: Anterior osteophyte formation is noted. Left worse than right facet and uncovertebral arthropat hy contribute to moderate left-sided and mild right-sided neuroforaminal stenosis at the C6 nerve julito t level. C6-7: Loss of disc height is noted. Anterior osteophyte formation is observed. Right worse than left uncovertebral arthropathy contributes to severe right-sided and moderate left-sided neuroforaminal st enosis at the C7 nerve root level. C7-T1: No abnormality. CRANIOCERVICAL JUNCTION:No significant abnormality. SPINAL CANAL: Central spinal canal is adequately maintained throughout. PARASPINAL SOFT TISSUES: No significant abnormality. LUNG APICES: No significant abnormality of visualized lungs. IMPRESSION: 1. No indication of fracture or traumatic subluxation. 2. Widespread cervical spondylosis with multifocal neuroforaminal narrowing as described level by mandy el above. Signer Name: Blayne Bell MD Signed: 02/02/2020 5:30 PM Workstation Name: [id number]
[2020-02-02 17:57] LABS: INR 1.08 (0.87-1.13)
[2020-02-02 17:59] LABS: Alanine Aminotransferase 24 units/L (7-56); Albumin 4.3 g/dL (3.9-5); BUN/Creatinine Ratio 11; Blood Urea Nitrogen 13 mg/dL (9-20); Calcium 8.5 mg/dL (8.4-10.2); Hemolysis Index 2
[2020-02-02 19:24] VITALS: BP 92/58
== END 2020-02-02 19:25 | disposition other institution (70) ==
LOC: ED 16:14
DX: I60.9 Nontraumatic subarachnoid hemorrhage, unspecified (principal); F10.929 Alcohol use, unspecified with intoxication, unspecified; I10 Essential (primary) hypertension; G40.909 Epilepsy, unspecified, not intractable, without status epilepticus; Z79.899 Other long term (current) drug therapy
CPT/HCPCS: 36415; 70450; 72125; 80053; 82140; 84443; 84484; 85025; 85610; 93005; 93010; 96365; 96375; 99291; J1200; J2060; J3411; J7030; 80320; G0480

== ENCOUNTER 2020-03-31 10:53 | Inpatient (IN) | payer MEDICARE ==
[2020-03-31] MEDS ORDERED: SODIUM CHLORIDE 0.9% 1000 ML 1,000 ML ONE (11:18)
[2020-03-31] MEDS ORDERED: dilTIAZem 25 MG/5 ML INJ ONE (11:18)
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
[2020-03-31] MEDS ORDERED: SODIUM CHLORIDE 0.9% 1000 ML 1,000 ML IV ONE ×2 (11:26→11:27)
[2020-03-31] MEDS ORDERED: dilTIAZem 25 MG/5 ML INJ IV ONE ×2 (11:26→11:28)
[2020-03-31 11:50] LABS: Basophils # (Auto) 0.1 K/mm3 (0.0-0.1); Basophils % (Auto) 0.7 % (0.0-1.8); Eosinophils % (Auto) 0.3 % (0.0-4.3); Hematocrit 40.4 % (35.5-45.6); Hemoglobin 13.1 gm/dl (11.8-15.2); Lymphocytes # (Auto) 1.2 K/mm3 (1.2-5.4); Lymphocytes % (Auto) 15.7 % (13.4-35.0); Mean Corpuscular HGB Conc 32 % (32-34); Mean Corpuscular Volume 91 fl (84-94); Monocytes # (Auto) 0.9 K/mm3 (0.0-0.8); Platelet Count 289 K/mm3 (140-440); Red Blood Count 4.46 M/mm3 (3.65-5.03); Red Cell Distribution Width 14.8 % (13.2-15.2)
[2020-03-31] MEDS ORDERED: levETIRAcetam 1000 MG/NS 0.75% 1,000 MG/100 ML BAG IV ONE (11:51)
--- NOTE | 2020-03-31 11:55 | XRay Report ---
CHEST 1 VIEW INDICATION: Chest Pain. COMPARISON: None FINDINGS: Support devices: None. Heart: Within normal limits. Previous sternotomy is noted, correlate with history. The aorta is mildl y ectatic but well defined. Lungs/Pleura: No acute air space or interstitial disease. Additional findings: None. IMPRESSION: No acute findings. Signer Name: Ulysses Alcantar Jr, MD Signed: 03/31/2020 11:50 AM Workstation Name: [id number]
[2020-03-31 12:04] LABS: INR 1.14 (0.87-1.13); Partial Thromboplastin Time 24.1 Sec. (24.2-36.6)
[2020-03-31 12:11] LABS: BUN/Creatinine Ratio 16; Blood Urea Nitrogen 22 mg/dL (9-20); Calcium 8.8 mg/dL (8.4-10.2); Hemolysis Index 8
[2020-03-31 12:15] LABS: Alanine Aminotransferase 33 units/L (7-56); Albumin 4.1 g/dL (3.9-5)
[2020-03-31 12:21] LABS: Bilirubin,Direct < 0.2 mg/dL (0-0.2)
--- NOTE | 2020-03-31 12:55 | History and Physical Report ---
History of Present Illness Chief complaint: I think you had a seizure History of present illness: 55 YO Male with Seizure Disorder, HTN, ETOH Dependence presents to ED for evaluation. Pt reports being in his usual state of health. Patient is experienced a witnessed seizure by family members today. EMS was notified and upon arrival the patient was found to be in distress. The patient was also found to have SVT and was treated with adenosine with improvement of heart rate initially but with subsequent return of SVT. Patient transported to [facility] for further evaluation and care. Patient seen and evaluated in the emergency department. Lab and imaging studies reviewed. Patient was found to have persistent SVT and was treated with Cardizem drip with normalization of heart rate. Patient admitted to [facility] for medical stabilization and further care due to increased risk of cardiac decompensation. Patient denies fever, chills, chest pain, palpitations, productive cough, skin rash, recent ill contacts, unilateral leg swelling, calf pain, prolonged travel/immobility, individual/family history of DVT/PE/bleeding/blood clotting disorders, or known exposure to COVID-19. Past History Past Medical History: hypertension, seizures, other (See HPI) Past Surgical History: No surgical history, Other (Reviewed) Social history: single. denies: smoking, alcohol abuse Family history: hypertension Medications and Allergies Allergies Allergy/AdvReac Type Severity Reaction Status Date / Time No Known Allergies Allergy Unverified 11/19/18 09:00 Home Medications Medication Instructions Recorded Confirmed Last Taken Type levETIRAcetam [Keppra] 500 mg PO BID #60 tablet 11/19/18 Unknown Rx Active Meds: Active Medications Diltiazem HCl (Cardizem/D5w 100mg/100ml) 100 mg in 100 mls @ 5 mls/hr IV TITR [facility]; Protocol Review of Systems Constitutional: no weight loss, no weight gain, no fever, no chills Ears, nose, mouth and throat: no ear pain, no tinnitis, no nose pain, no nasal congestion, no nasal discharge Cardiovascular: palpitations, no chest pain, no orthopnea, no edema, no syncope Respiratory: no cough, no excessive sputum, no shortness of breath Gastrointestinal: no nausea, no vomiting Genitourinary Male: no hematuria, no flank pain, no urinary frequency, no urinary hesitancy Rectal: no pain, no incontinence, no bleeding Musculoskeletal: no neck stiffness, no neck pain, no shooting arm pain, no low back pain, no shooting leg pain Integumentary: no rash, no pruritis, no sores, no wounds, no jaundice Neurological: no transient paralysis, no paralysis, no parathesias, no numbness, no tingling, no syncope Psychiatric: no memory loss, no change in sleep habits, no insomnia, no change in libido Endocrine: no cold intolerance, no heat intolerance, no polydipsia, no polyuria, no excessive sweating Hematologic/Lymphatic: no easy bruising, no easy bleeding, no lymphadenopathy, no lymphedema Allergic/Immunologic: no urticaria, no allergic rhinitis (Able asthma and has gone), no wheezing, no persistent infections, no anaphylaxis Exam - Constitutional Vitals: Temp Pulse Resp BP Pulse Ox 97.8 F 99 H 28 H 117/76 97 03/31/20 11:00 03/31/20 11:45 03/31/20 11:45 03/31/20 11:45 03/31/20 11:45 General appearance: Present: mild distress - EENT Eyes: Present: PERRL ENT: hearing intact, clear oral mucosa - Neck Neck: Present: supple, normal ROM - Respiratory Respiratory effort: normal Respiratory: bilateral: CTA - Cardiovascular Heart Sounds: Present: S1 & S2. Absent: rub, click - Extremities Extremities: pulses symmetrical, No edema Peripheral Pulses: within normal limits - Abdominal General gastrointestinal: Present: soft, non-tender, non-distended, normal bowel sounds Male genitourinary: Present: normal - Integumentary Integumentary: Present: clear, warm, dry - Musculoskeletal Musculoskeletal: gait normal, strength equal bilaterally - Psychiatric Psychiatric: appropriate mood/affect, intact judgment & insight - Neurologic Neurologic: CNII-XII intact, moves all extremities HEART Score - HEART Score Troponin: Troponin T < 0.010 ng/mL (0.00-0.029) 03/31/20 11:35 Results - Labs CBC & Chem 7: 03/31/20 11:35 03/31/20 11:35 Labs: Abnormal lab results 03/31/20 03/31/20 03/31/20 Range/Units 11:35 11:35 11:35 [place] % (Auto) 12.0 H (0.0-7.3) % [place] # 0.9 H (0.0-0.8) K/mm3 Seg Neutrophils % 71.3 H (40.0-70.0) % INR 1.14 H (0.87-1.13) APTT 24.1 L (24.2-36.6) Sec. Potassium 5.1 H (3.6-5.0) mmol/L Carbon Dioxide 13 L (22-30) mmol/L BUN 22 H (9-20) mg/dL Glucose 120 H (75-100) mg/dL Assessment and Plan - Patient Problems (1) Supraventricular tachycardia Current Visit: Yes Status: Acute Plan to address problem: Patient admitted to [facility]: Carolyn la, cardiology consulted in ED, echocardiogram, supportive care. (2) Seizure disorder Current Visit: Yes Status: Acute Plan to address problem: Keppra in ED, Keppra 500 mg p.o. twice daily, supportive care. (3) EtOH dependence Current Visit: Yes Status: Acute Plan to address problem: CIWA protocol, Ativan, thiamine, folic acid, multivitamin p.o. daily. (4) DVT prophylaxis Current Visit: No Status: Acute Plan to address problem: SCD to bilateral lower extremities while in bed, patient is ambulatory.
[2020-03-31] MEDS ORDERED: ONDANSETRON 4 MG/2 ML INJ IV PRN (12:57)
[2020-03-31] MEDS ORDERED: ACETAMINOPHEN 325 MG TAB PO PRN (12:57)
[2020-03-31] MEDS: dilTIAZem/D5W 100 MG/100 ML BAG IV SCH (13:01)
[2020-03-31] MEDS ORDERED: LORazepam 2 MG/ML VIAL IV PRN (21:05)
[2020-03-31] MEDS: levETIRAcetam 500 MG TAB PO SCH (23:05)
[2020-04-01] MEDS: dilTIAZem/D5W 100 MG/100 ML BAG IV SCH (01:00)
[2020-04-01 05:59] LABS: BUN/Creatinine Ratio 14; Blood Urea Nitrogen 14 mg/dL (9-20); Calcium 8.5 mg/dL (8.4-10.2); Hemolysis Index 10
[2020-04-01 06:55] LABS: Bilirubin,Urine NEG (Negative); Blood,Urine NEG (Negative); Color,Urine Yellow (Yellow); Protein,Urine <15 mg/dL mg/dL (Negative); Sperm,Urine 2+ /HPF (NP); Urobilinogen,Urine < 2.0 mg/dL (<2.0)
[2020-04-01 06:58] LABS: Amphetamine Screen,Urine PRESUMPTIVE NEGATIVE; Benzodiazepines Screen,Urine PRESUMPTIVE NEGATIVE; Cannabinoid Screen,Urine PRESUMPTIVE NEGATIVE; Methadone Screen,Urine PRESUMPTIVE NEGATIVE; Opiate Screen,Urine PRESUMPTIVE NEGATIVE
[2020-04-01 07:08] LABS: Mucus,Urine 1+ /HPF
[2020-04-01 07:10] LABS: Cocaine Screen,Urine PRESUMPTIVE POSITIVE
[2020-04-01] MEDS: MULTIVITAMINS ,THERAPEUTIC TAB PO SCH (09:34)
[2020-04-01] MEDS: levETIRAcetam 500 MG TAB PO SCH ×2 (09:34→22:24)
[2020-04-01] MEDS: THIAMINE 100 MG TAB PO SCH (09:34)
[2020-04-01] MEDS: FOLIC ACID 1 MG TAB PO SCH (09:34)
--- NOTE | 2020-04-01 10:54 | Consultation ---
History of Present Illness Consult date: 04/01/20 Requesting physician: VENKATESH ARCHULETA Consult reason: other (svt) History of present illness: The patient is 55 year old male with a past medical history of CAD s/p reported AMI with CABG x 1 at [place], ? SVT, brain tumor s/p crainotomy, subarachnoid hemorrhage in 01/2020, seizure disorder, ETOH abuse, cocaine use, medical noncompliance. 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 He presented yesterday for evaluation following seizure. He states that he was drinking heavily over the weekend and began having seizures on Tuesday. Pt's family member called EMS. Per EMS, pt was noted to be in SVT immediately after patient started having seizure. EMS reported that patient was given 6 mg of adenosine and 12 mg later. They stated that his heart rate decreased to 90bpm and then increased back to 160. In the ED, pt noted to have HR in 160s. Admission ECG shows SVT - apparent AFlutter with 2:1 conduction. Pt was given IV cardizem bolus and initiated on cardizem gtt. Cardiology was consulted today. On evalua tion, pt is in NSR. He appears to have been in NSR since initiation of telemetry in [facility]. Pt c/o some generalized pain. He denies any specific chest pain, palpitations, n/v, diaphoresis or dizziness. Pt denies any know prior occurrences of SVT, although h/o SVT is included in pt's medical history per the chart. Past History Past Medical History: CAD, seizures, other (See HPI) Past Surgical History: CABG, Other (crainotomy ) Social history: alcohol abuse, other (cocaine use). denies: smoking Family history: hypertension Medications and Allergies Allergies Allergy/AdvReac Type Severity Reaction Status Date / Time No Known Allergies Allergy Unverified 11/19/18 09:00 Home Medications Medication Instructions Recorded Confirmed Last Taken Type levETIRAcetam [Keppra] 500 mg PO BID #60 tablet 11/19/18 Unknown Rx Active Meds: Active Medications Acetaminophen (Tylenol) 650 mg PO Q4H PRN PRN Reason: Pain MILD(1-3)/Fever >100.5/[facility] Last Admin: 03/31/20 23:10 Dose: 650 mg Documented by: Folic Acid (Folvite) 1 mg PO QDAY [facility] Last Admin: 04/01/20 09:34 Dose: 1 mg Documented by: Diltiazem HCl (Cardizem/D5w 100mg/100ml) 100 mg in 100 mls @ 5 mls/hr IV TITR [facility]; Protocol Last Admin: 04/01/20 01:00 Dose: 5 mg/hr, 5 mls/hr Documented by: Levetiracetam (Keppra) 750 mg PO BID [facility] Lorazepam (Ativan) 2 mg IV Q1HR PRN PRN Reason: CIWA-Ar 8-15 Multivitamins (Theragran Tab) 1 each PO QDAY [facility] Last Admin: 04/01/20 09:34 Dose: 1 each Documented by: Ondansetron HCl (Zofran) 4 mg IV Q8H PRN PRN Reason: Nausea And Vomiting Sodium Chloride (Sodium Chloride Flush Syringe 10 Ml) 10 ml IV BID [facility] Last Admin: 04/01/20 09:34 Dose: 10 ml Documented by: Sodium Chloride (Sodium Chloride Flush Syringe 10 Ml) 10 ml IV PRN PRN PRN Reason: LINE FLUSH Thiamine HCl (Vitamin B-1) 100 mg PO QDAY [facility] Last Admin: 04/01/20 09:34 Dose: 100 mg Documented by: Review of Systems Constitutional: no weight loss, no weight gain, no fever, no chills, no sweats Ears, nose, mouth and throat: no ear pain, no nose pain, no sinus pressure, no sinus pain Cardiovascular: no chest pain, no orthopnea, no palpitations, no rapid/irregular heart beat, no edema, no lightheadedness, no shortness of breath, no dyspnea on exertion, no high blood pressure, no decreased exercise tolerance Respiratory: no cough, no shortness of breath, no dyspnea on exertion, no congestion, no wheezing, no pain on inspiration Gastrointestinal: no abdominal pain, no nausea, no vomiting, no diarrhea, no constipation, no change in bowel habits Genitourinary Male: no dysuria, no hematuria, no flank pain, no discharge, no urinary frequency, no urinary hesitancy Musculoskeletal: no neck stiffness, no neck pain, no shooting arm pain, no arm numbness/tingling, no low back pain, no shooting leg pain Integumentary: no rash, no pruritis, no redness, no sores, no wounds Neurological: seizures Psychiatric: no anxiety Endocrine: no cold intolerance, no heat intolerance Hematologic/Lymphatic: no easy bruising, no easy bleeding Allergic/Immunologic: no urticaria Physical Examination Vital Signs Temp Pulse Resp BP Pulse Ox 97.8 F 161 H 26 H 114/77 95 03/31/20 11:00 03/31/20 11:00 03/31/20 11:00 03/31/20 11:00 03/31/20 11:00 General appearance: no acute distress HEENT: Positive: PERRL, Normocephaly, Mucus Membranes Moist Neck: Positive: neck supple, trachea midline Cardiac: Positive: Reg Rate and Rhythm, S1/S2 Lungs: Positive: Decreased Breath Sounds Neuro: Positive: Grossly Intact Abdomen: Negative: Tender Skin: Negative: Rash Musculoskeletal: No Pain Extremities: Absent: edema Results 03/31/20 11:35 04/01/20 04:18 Cardiac Enzymes 03/31/20 Range/Units 11:35 AST 30 (5-40) units/L Coagulation 03/31/20 Range/Units 11:35 PT 14.7 (12.2-14.9) Sec. INR 1.14 H (0.87-1.13) APTT 24.1 L (24.2-36.6) Sec. CBC 03/31/20 Range/Units 11:35 WBC 7.7 (4.5-11.0) K/mm3 RBC 4.46 (3.65-5.03) M/mm3 Hgb 13.1 (11.8-15.2) gm/dl Hct 40.4 (35.5-45.6) % Plt Count 289 (140-440) K/mm3 Lymph # 1.2 (1.2-5.4) K/mm3 Merrick # 0.9 H (0.0-0.8) K/mm3 Eos # 0.0 (0.0-0.4) K/mm3 Baso # 0.1 (0.0-0.1) K/mm3 Comprehensive Metabolic Panel 03/31/20 03/31/20 04/01/20 Range/Units 11:35 11:35 04:18 Sodium 138 138 (137-145) mmol/L Potassium 5.1 H 4.0 D (3.6-5.0) mmol/L Chloride 102.7 101.1 (98-107) mmol/L Carbon Dioxide 13 L 21 L D (22-30) mmol/L BUN 22 H 14 (9-20) mg/dL Creatinine 1.4 1.0 (0.8-1.5) mg/dL Glucose 120 H 90 (75-100) mg/dL Calcium 8.8 8.5 (8.4-10.2) mg/dL Direct Bilirubin < 0.2 (0-0.2) mg/dL Indirect Bilirubin 0.4 mg/dL AST 30 (5-40) units/L ALT 33 (7-56) units/L Alkaline Phosphatase 86 (35-129) units/L Total Protein 7.9 (6.3-8.2) g/dL Albumin 4.1 (3.9-5) g/dL - Imaging and Cardiology Echo: pending EKG: report reviewed, image reviewed EKG interpretations - Telemetry EKG Rhythm: Sinus Rhythm - EKG Supraventricular dysrhythmia: atrial flutter Assessment and Plan Pt presented with c/o seizures. Was noted to be in SVT - apparent transient AFlutter with 2:1 conduction. He is currently in NSR. Obtain echo, thyroid profile and serum Mg. Attempt to obtain medical records from [place]. Initiate lopressor and titrate as BPs permit. Cont observation on telemetry. Pt with h/o CAD s/p CABG. Initiate ASA 81 and lipitor. Obtain lipid panel in AM. 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 The patient has been seen in conjunction with Dr. Patel who agrees with the assessment and plan of care. - Patient Problems (1) Supraventricular tachycardia Current Visit: Yes Status: Acute Plan to address problem: suspect transient atrial flutter with 2:1 conduction--> NSR (2) Seizure disorder Current Visit: Yes Status: Acute (3) EtOH dependence Current Visit: Yes Status: Chronic (4) Cocaine use Current Visit: Yes Status: Chronic (5) CAD (coronary artery disease) Current Visit: Yes Status: Chronic (6) History of coronary artery bypass graft Current Visit: Yes Status: Chronic (7) History of brain tumor Current Visit: Yes Status: Chronic (8) History of craniotomy Current Visit: Yes Status: Chronic (9) History of subarachnoid hemorrhage Current Visit: Yes Status: Chronic (10) Medical non-compliance Current Visit: Yes Status: Chronic
[2020-04-01] MEDS ORDERED: levETIRAcetam 500 MG TAB PO SCH (11:00)
--- NOTE | 2020-04-01 12:02 | Progress Note ---
Assessment and Plan Assessment and plan: (1) Supraventricular tachycardia Current Visit: Yes Status: Acute Plan to address problem: Patient admitted to [facility]U: [facility], cardiology consulted in ED, echocardiogram, supportive care. (2) Seizure disorder Current Visit: Yes Status: Acute Plan to address problem: Keppra in ED, Increase Keppra dose to 750 mg p.o. twice daily, supportive care. (3) EtOH dependence Current Visit: Yes Status: Acute Plan to address problem: CIWA protocol, Ativan, thiamine, folic acid, multivitamin p.o. daily. (4) DVT prophylaxis Current Visit: No Status: Acute Plan to address problem: SCD to bilateral lower extremities while in bed, patient is ambulatory. History Interval history: Patient with seizure disorder, presents with seizures. Says he was compliant with [facility] Hospitalist Physical - Physical exam Narrative exam: GEN: Not in acute distress, lying in bed,obese HEENT: Normocephalic, atraumatic, Neck: supple, No JVD Lungs: Clear to auscultation bilaterally, heart;S1 and S2 reg, no murmurs, rubs or gallop Abd:soft, non tender, non distended, normal bowel sounds, Ext: No edema, no clubbing, no cyanosis, Neuro: Awake,alert,oriented X3 , no focal signs, - Constitutional Vitals: Temp Pulse Resp BP Pulse Ox 98.6 F 83 25 H 103/64 98 04/01/20 07:55 04/01/20 11:00 04/01/20 11:00 04/01/20 11:00 04/01/20 11:00 General appearance: Present: no acute distress HEART Score - HEART Score Troponin: Troponin T < 0.010 ng/mL (0.00-0.029) 03/31/20 11:35 Results - Labs CBC & Chem 7: 03/31/20 11:35 04/01/20 04:18 Labs: Laboratory Last Values WBC 7.7 K/mm3 (4.5-11.0) 03/31/20 11:35 RBC 4.46 M/mm3 (3.65-5.03) 03/31/20 11:35 Hgb 13.1 gm/dl (11.8-15.2) 03/31/20 11:35 Hct 40.4 % (35.5-45.6) 03/31/20 11:35 MCV 91 fl (84-94) 03/31/20 11:35 MCH 29 pg (28-32) 03/31/20 11:35 MCHC 32 % (32-34) 03/31/20 11:35 RDW 14.8 % (13.2-15.2) 03/31/20 11:35 Plt Count 289 K/mm3 (140-440) 03/31/20 11:35 Lymph % (Auto) 15.7 % (13.4-35.0) 03/31/20 11:35 [place] % (Auto) 12.0 % (0.0-7.3) H 03/31/20 11:35 Eos % (Auto) 0.3 % (0.0-4.3) 03/31/20 11:35 Baso % (Auto) 0.7 % (0.0-1.8) 03/31/20 11:35 Lymph # 1.2 K/mm3 (1.2-5.4) 03/31/20 11:35 [place] # 0.9 K/mm3 (0.0-0.8) H 03/31/20 11:35 Eos # 0.0 K/mm3 (0.0-0.4) 03/31/20 11:35 Baso # 0.1 K/mm3 (0.0-0.1) 03/31/20 11:35 Seg Neutrophils % 71.3 % (40.0-70.0) H 03/31/20 11:35 Seg Neutrophils # 5.5 K/mm3 (1.8-7.7) 03/31/20 11:35 PT 14.7 Sec. (12.2-14.9) 03/31/20 11:35 INR 1.14 (0.87-1.13) H 03/31/20 11:35 APTT 24.1 Sec. (24.2-36.6) L 03/31/20 11:35 Sodium 138 mmol/L (137-145) 04/01/20 04:18 Potassium 4.0 mmol/L (3.6-5.0) D 04/01/20 04:18 Chloride 101.1 mmol/L (98-107) 04/01/20 04:18 Carbon Dioxide 21 mmol/L (22-30) L D 04/01/20 04:18 Anion Gap 20 mmol/L 04/01/20 04:18 BUN 14 mg/dL (9-20) 04/01/20 04:18 Creatinine 1.0 mg/dL (0.8-1.5) 04/01/20 04:18 Estimated GFR > 60 ml/min 04/01/20 04:18 BUN/Creatinine Ratio 14 % 04/01/20 04:18 Glucose 90 mg/dL (75-100) 04/01/20 04:18 Calcium 8.5 mg/dL (8.4-10.2) 04/01/20 04:18 Magnesium 2.90 mg/dL (1.7-2.3) H 04/01/20 10:26 Total Bilirubin 0.60 mg/dL (0.1-1.2) 03/31/20 11:35 Direct Bilirubin < 0.2 mg/dL (0-0.2) 03/31/20 11:35 Indirect Bilirubin 0.4 mg/dL 03/31/20 11:35 AST 30 units/L (5-40) 03/31/20 11:35 ALT 33 units/L (7-56) 03/31/20 11:35 Alkaline Phosphatase 86 units/L (35-129) 03/31/20 11:35 Troponin T < 0.010 ng/mL (0.00-0.029) 03/31/20 11:35 Total Protein 7.9 g/dL (6.3-8.2) 03/31/20 11:35 Albumin 4.1 g/dL (3.9-5) 03/31/20 11:35 Albumin/Globulin Ratio 1.1 % 03/31/20 11:35 Urine Color Yellow (Yellow) 03/31/20 06:15 Urine Turbidity Clear (Clear) 03/31/20 06:15 Urine pH 6.0 (5.0-7.0) 03/31/20 06:15 Ur Specific [place] 1.023 (1.003-1.030) 03/31/20 06:15 Urine Protein <15 mg/dl mg/dL (Negative) 03/31/20 06:15 Urine Glucose (UA) Neg mg/dL (Negative) 03/31/20 06:15 Urine Ketones 20 mg/dL (Negative) 03/31/20 06:15 Urine Blood Neg (Negative) 03/31/20 06:15 Urine Nitrite Neg (Negative) 03/31/20 06:15 Urine Bilirubin Neg (Negative) 03/31/20 06:15 Urine Urobilinogen < 2.0 mg/dL (<2.0) 03/31/20 06:15 Ur Leukocyte Esterase Neg (Negative) 03/31/20 06:15 Urine WBC (Auto) 1.0 /HPF (0.0-6.0) 03/31/20 06:15 Urine RBC (Auto) 1.0 /HPF (0.0-6.0) 03/31/20 06:15 Urine Mucus 1+ /HPF 03/31/20 06:15 Urine Sperm 2+ /HPF ([employer]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) 03/31/20 06:15 Urine Opiates Screen Presumptive negative 03/31/20 06:15 Urine Methadone Screen Presumptive negative 03/31/20 06:15 Ur Barbiturates Screen Presumptive negative 03/31/20 06:15 Ur Phencyclidine Scrn Presumptive negative 03/31/20 06:15 Ur Amphetamines Screen Presumptive negative 03/31/20 06:15 U Benzodiazepines Scrn Presumptive negative 03/31/20 06:15 Urine Cocaine Screen Presumptive positive 03/31/20 06:15 U Marijuana (THC) Screen Presumptive negative 03/31/20 06:15 Drugs of Abuse Note Disclamer 03/31/20 06:15 Garza/IV: Voiding Method Urinal IV Catheter Type [Right INT / Saline Lock Forearm] Active Medications - Current Medications Current Medications: Generic Name Dose Route Start Last Admin Trade Name Freq PRN Reason Stop Dose Admin Acetaminophen 650 mg 03/31/20 12:57 03/31/20 23:10 Tylenol PO 650 mg Q4H PRN Administration Pain MILD(1-3)/Fever >100.5/JACKSON Aspirin 81 mg 04/01/20 12:00 Baby Aspirin PO QDAY MANJULA Atorvastatin Calcium 40 mg 04/01/20 22:00 Lipitor PO QHS MANJULA Folic Acid 1 mg 04/01/20 10:00 04/01/20 09:34 Folvite PO 1 mg QDAY MANJULA Administration Levetiracetam 750 mg 04/01/20 22:00 Keppra PO BID MANJULA Lorazepam 2 mg 03/31/20 21:05 Ativan IV Q1HR PRN CIWA-Ar 8-15 Metoprolol Tartrate 25 mg 04/01/20 12:00 Metoprolol PO BID MANJULA Multivitamins 1 each 04/01/20 10:00 04/01/20 09:34 Theragran Tab PO 1 each QDAY MANJULA Administration Ondansetron HCl 4 mg 03/31/20 12:57 Zofran IV Q8H PRN Nausea And Vomiting Sodium Chloride 10 ml 03/31/20 22:00 04/01/20 09:34 Sodium Chloride Flush Syringe 10 Ml IV 10 ml BID MANJULA Administration Sodium Chloride 10 ml 03/31/20 12:57 Sodium Chloride Flush Syringe 10 Ml IV PRN PRN LINE FLUSH Thiamine HCl 100 mg 04/01/20 10:00 04/01/20 09:34 Vitamin B-1 PO 100 mg QDAY MANJULA Administration
[2020-04-01] MEDS: ASPIRIN 81 MG TAB CHEW PO SCH (12:16)
[2020-04-01] MEDS: METOPROLOL TARTRATE 25 MG TAB PO SCH ×2 (12:16→22:23)
[2020-04-02] MEDS: THIAMINE 100 MG TAB PO SCH (09:53)
[2020-04-02] MEDS: FOLIC ACID 1 MG TAB PO SCH (09:53)
[2020-04-02] MEDS: MULTIVITAMINS ,THERAPEUTIC TAB PO SCH (09:53)
[2020-04-02] MEDS: METOPROLOL TARTRATE 25 MG TAB PO SCH (09:57)
[2020-04-02] MEDS: levETIRAcetam 500 MG TAB PO SCH (09:58)
[2020-04-02] MEDS: ASPIRIN 81 MG TAB CHEW PO SCH (09:58)
--- NOTE | 2020-04-02 11:28 | Progress Note ---
Assessment and Plan Tele reviewed - in SR with no acute events noted overnight, no SVT. tte reviewed - EF 55-60%. Thyroid profile WNL. Currently stable cardiac status. Cont present cardiac management. In regards to systemic anticoagulation, pt appears to be a poor candidate for advanced seal delivery system systemic AC in setting of ETOH abuse, h/o subarachnoid hemorrhage due to suspected fall in 01/2020, seizure disorder, h/o brain tumor s/p crainotomy, h/o medical noncompliance. Nothing further to add from cardiac perspective at this time. Will sign off. Recommend pt follow up with [facility] within 1-2 weeks of discharge. The patient has been seen in conjunction with Dr. Patel who agrees with the assessment and plan of care. - Patient Problems (1) Supraventricular tachycardia Current Visit: Yes Status: Acute Plan to address problem: suspect transient atrial flutter with 2:1 conduction--> NSR (2) Seizure disorder Current Visit: Yes Status: Acute (3) EtOH dependence Current Visit: Yes Status: Chronic (4) Cocaine use Current Visit: Yes Status: Chronic (5) CAD (coronary artery disease) Current Visit: Yes Status: Chronic (6) History of coronary artery bypass graft Current Visit: Yes Status: Chronic (7) History of brain tumor Current Visit: Yes Status: Chronic (8) History of craniotomy Current Visit: Yes Status: Chronic (9) History of subarachnoid hemorrhage Current Visit: Yes Status: Chronic (10) Medical non-compliance Current Visit: Yes Status: Chronic Subjective Date of service: 04/02/20 Principal diagnosis: SVT; seizures Interval history: pt resting in bed, no current complaints. tele reviewed - in SR with no acute events noted overnight. Objective Last Vital Signs Temp 97.5 F L 04/02/20 04:00 Pulse 85 04/02/20 06:00 Resp 13 04/02/20 06:00 BP 116/77 04/02/20 06:00 Pulse Ox 99 04/02/20 06:00 - Physical Examination General: No Apparent Distress HEENT: Positive: PERRL, Normocephaly, Mucus Membranes Moist Neck: Positive: neck supple, trachea midline Cardiac: Positive: Reg Rate and Rhythm, S1/S2 Lungs: Positive: Decreased Breath Sounds Neuro: Positive: Grossly Intact Abdomen: Negative: Tender Skin: Negative: Rash Musculoskeletal: No Pain Extremities: Absent: edema - Labs and Meds Lipids 04/02/20 Range/Units 04:47 Triglycerides 107 (2-149) mg/dL Cholesterol 192 (50-199) mg/dL HDL Cholesterol 64 H (40-59) mg/dL Cholesterol/HDL Ratio 3.00 % - Imaging and Cardiology EKG: report reviewed, image reviewed Echo: report reviewed - Telemetry EKG Rhythm: Sinus Rhythm
[2020-04-02 12:01] VITALS: BP 117/79
--- NOTE | 2020-04-02 12:01 | Discharge Summary ---
Providers - Providers Date of Admission: 03/31/20 12:57 Date of discharge: 04/02/20 Attending physician: VENKATESH ARCHULETA 04/01/20 10:15 Consult to Physician [CONS] Routine Comment: Consulting Provider: CAROLA FUENTES Physician Instructions: Reason For Exam: SVT [facility] Condition: Fair Hospital course: 55 YO Male with Seizure Disorder, HTN, ETOH Dependence presented to ED for evaluation. Patient experienced a seizure witnessed by family members today. EMS was notified and upon arrival the patient was found to be in distress. The patient was also found to have SVT and was treated with adenosine with improvement of heart rate initially but with subsequent return of SVT. Patient transported to [facility] for further evaluation and care. Patient seen and evaluated in the emergency department. Patient was found to have persistent SVT and was treated with Cardizem drip with normalization of heart rate. He was also started on Keppra iv. Patient admitted to [facility] . He was evaluated by Cardiology, was started on Metoprolol for SVT. He did not have any further SVT or seizures so was discharged home on 04/03/2020. Supraventricular tachycardia Patient admitted to [facility]: Cardizem drip, cardiology consulted in ED, echocardiogram, supportive care. Started on Metoprolol Seizure disorder Keppra in ED, Increased Keppra dose to 750 mg p.o. twice daily, supportive care. EtOH dependence CIWA protocol, Ativan, thiamine, folic acid, multivitamin p.o. daily. Total time spent on discharge, 33 mins Disposition: - TO HOME OR SELFCARE Core Measure Documentation - Palliative Care Palliative Care/ Comfort Measures: Not Applicable - Core Measures Any of the following diagnoses?: none Exam - Constitutional Vitals: Temp Pulse Resp BP Pulse Ox 97.5 F L 85 13 116/77 99 04/02/20 04:00 04/02/20 06:00 04/02/20 06:00 04/02/20 06:00 04/02/20 06:00 Plan Activity: other (No driving for at least 6 months and until cleared by Physician) Diet: low fat, low cholesterol, low salt Additional Instructions: 1.Follow up with PCP in 1 week. 2.Follow up with [facility] in 1 week. 3.No driving for at least 6 months an until cleared by Physician. Care Plan Goals: 1.Follow up with PCP in 1 week. 2.Follow up with [facility] in 1 week. 3.No driving for at least 6 months an until cleared by Physician. Follow up with: SILVA VARGAS MD [Primary Care Provider] - 7 Days Prescriptions: Folic Acid [Folvite] 1 mg PO QDAY #30 tablet Aspirin EC [Halfprin EC] 81 mg PO QDAY #30 tablet. levETIRAcetam [Keppra TAB] 750 mg PO BID #60 tablet AtorvaSTATin [Lipitor] 40 mg PO QHS #30 tablet Metoprolol [Lopressor TAB] 25 mg PO BID #60 tablet Multivitamin Tab [Multiple Vitamin TAB (Theragran)] 1 each PO QDAY #30 tablet Thiamine [Vitamin B-1] 100 mg PO QDAY #30 tablet
== END 2020-04-02 13:30 | disposition home or self-care (01) | DRG 309 ==
LOC: ED 10:53 → IMCU 12:57
PROVIDERS: ADMIT Internal Medicine; ATTEND Internal Medicine
DX: I47.1 Supraventricular tachycardia (principal); E87.2 Acidosis; G40.909 Epilepsy, unspecified, not intractable, without status epilepticus; I10 Essential (primary) hypertension; F10.20 Alcohol dependence, uncomplicated; Y90.9 Presence of alcohol in blood, level not specified; F14.90 Cocaine use, unspecified, uncomplicated; I25.10 Atherosclerotic heart disease of native coronary artery without angina pectoris; Z82.49 Family history of ischemic heart disease and other diseases of the circulatory system; Z95.5 Presence of coronary angioplasty implant and graft; Z91.14 Patient's other noncompliance with medication regimen; I25.2 Old myocardial infarction
CPT/HCPCS: 36415; 71045; 80048; 80061; 80076; 80307; 81001; 83735; 84439; 84443; 84484; 85025; 85610; 85730; 93005; 93306; 94760; G0378; A9270-GY; J1953; J7030

== ENCOUNTER 2022-06-22 18:02 | Emergency (ER) | payer MEDICARE ==
[2022-06-22] MEDS ORDERED: THIAMINE 100 MG, FOLIC ACID 1 MG, MULTIPLE VITAMIN INJ, ADULT 10 ML in SODIUM CHLORIDE ... IV ONE (19:24)
[2022-06-22] MEDS ORDERED: MAGNESIUM SULFATE 2 GM/50 ML BAG IV ONE (19:24)
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
[2022-06-22] MEDS ORDERED: diphenhydrAMINE 50 MG/ML VIAL IV ONE (19:39)
[2022-06-22 20:10] LABS: Hematocrit 41.8 % (35.5-45.6); Hemoglobin 13.8 gm/dl (11.8-15.2); Mean Corpuscular HGB Conc 33 % (32-34); Mean Corpuscular Volume 96 fl (84-94); Platelet Count 215 K/mm3 (140-440); Red Blood Count 4.37 M/mm3 (3.65-5.03); Red Cell Distribution Width 15.4 % (13.2-15.2)
[2022-06-22 20:29] LABS: Alanine Aminotransferase 24 units/L (7-56); Albumin 4.8 g/dL (3.9-5); BUN/Creatinine Ratio 9; Blood Urea Nitrogen 11 mg/dL (9-20); Hemolysis Index 9
[2022-06-22 21:30] LABS: Basophils % (Manual) 0 % (0.0-1.8); Platelet Estimate Consistent w Auto; Total Cells Counted 100
[2022-06-22] MEDS ORDERED: HALOPERIDOL LACTATE 5 MG/1 ML INJ IM PRN (21:40)
[2022-06-22] MEDS ORDERED: chlordiazePOXIDE 25 MG CAP PO PRN ×2 (22:51)
[2022-06-23] MEDS ORDERED: ZIPRASIDONE MESYLATE 20 MG VIAL IM ONE (03:25)
[2022-06-23 10:50] VITALS: BP 130/92
== END 2022-06-23 10:49 | disposition home or self-care (01) ==
LOC: ED 18:02
DX: F10.129 Alcohol abuse with intoxication, unspecified (principal); Z87.891 Personal history of nicotine dependence; I10 Essential (primary) hypertension
CPT/HCPCS: 36415; 80053; 85007; 85025; 96365; 96366; 96372; 99284; J1630; J3411; J3486; J3490; J7030; 80320; 96375; G0480